=== PATIENT | male | born 1995 | race Asian ===

== ENCOUNTER 2024-03-10 13:38 | Emergency (ER) | payer OTHER ==
[~2024-03-10] VITALS: Ht 190.5 cm; Wt 109.0 kg
[2024-03-10 13:48] VITALS: O2SAT 99
[2024-03-10] MEDS: IBUPROFEN 800MG TABLET PO ONE (14:43)
[2024-03-10] MEDS ORDERED: IBUP-2029 MT (15:38)
[2024-03-10 16:05] VITALS: BP 154/70; PULSE 86; RESP 14; TEMP 37.00296; O2SAT 100
== END 2024-03-10 16:06 | disposition home or self-care (01) ==
LOC: ER 13:38
DX: M25.511 Pain in right shoulder (principal)
CPT/HCPCS: 73030; 99283; Z7610